=== PATIENT | female | born 1940 | race Caucasian/White ===

== ENCOUNTER 2020-09-27 13:39 | Emergency (ER) | payer OTHER ==
[~2020-09-27] VITALS: Ht 152.4 cm; Wt 72.6 kg
[2020-09-27 13:40] VITALS: BP 189/71
[2020-09-27] MEDS ORDERED: PLAVIX 75 MG TA75 MG PO (15:44)
[2020-09-27] MEDS ORDERED: VITAMIN D310 MC2 PO (15:44)
[2020-09-27] MEDS ORDERED: BACLOFEN 10MG T10 MG PO (15:44)
[2020-09-27] MEDS ORDERED: ASA81BEC PO (15:44)
[2020-09-27] MEDS ORDERED: COLACE100 MG PO (15:45)
[2020-09-27] MEDS ORDERED: COZAAR 25 MG TA25 MG PO (15:45)
[2020-09-27] MEDS ORDERED: DULCOLAX STOOL100 M1 PO (15:46)
[2020-09-27] MEDS ORDERED: DENAVIR5 GM TOP (15:46)
[2020-09-27] MEDS ORDERED: RESTASIS MULTI5.5 ML OPHTHALMIC (15:46)
[2020-09-27] MEDS ORDERED: NEURONTIN100 MG PO (15:47)
[2020-09-27] MEDS ORDERED: FLEET ENEMA133 ML RECTAL (15:47)
[2020-09-27] MEDS ORDERED: DUREZOL5 ML OPHTHALMIC (15:47)
[2020-09-27] MEDS ORDERED: DRIZALMA SPRINK60 MG PO (15:47)
[2020-09-27] MEDS ORDERED: MAXITROL EYE DRO5 ML OPHTHALMIC (15:48)
[2020-09-27] MEDS ORDERED: TRANDATE 200 M200 M1 PO (15:48)
[2020-09-27] MEDS ORDERED: HYDRALAZINE 2525 MG PO (15:48)
[2020-09-27] MEDS ORDERED: MILK OF MA400 MG/5 M PO (15:48)
[2020-09-27] MEDS ORDERED: KLOR-CON 1010 MEQ PO (15:49)
[2020-09-27] MEDS ORDERED: MIRALAX119 GM PO (15:49)
[2020-09-27] MEDS ORDERED: TORSEMIDE20 MG PO (15:49)
[2020-09-27] MEDS ORDERED: NITROSTAT0.4 MG SUBLING (15:49)
[2020-09-27] MEDS ORDERED: NORCO5 PO (15:49)
[2020-09-27] MEDS ORDERED: MYRBETRIQ50 MG PO (15:49)
[2020-09-27] MEDS ORDERED: VOLTAREN ARTHRI20 GM TOP (15:50)
[2020-09-27] MEDS ORDERED: AMBIEN 5 MG TABL5 M1 PO (15:50)
== END 2020-09-27 15:40 | disposition home or self-care (01) ==
LOC: M.ERS 13:39
DX: S93.692A Other sprain of left foot, initial encounter (principal); I10 Essential (primary) hypertension; K21.9 Gastro-esophageal reflux disease without esophagitis; M79.7 Fibromyalgia; G47.33 Obstructive sleep apnea (adult) (pediatric); Z88.6 Allergy status to analgesic agent; Z88.5 Allergy status to narcotic agent; Z88.0 Allergy status to penicillin; Z88.2 Allergy status to sulfonamides; W01.0XXA Fall on same level from slipping, tripping and stumbling without subsequent striking against object, initial encounter; Y93.89 Activity, other specified; Y92.89 Other specified places as the place of occurrence of the external cause; Y99.8 Other external cause status